=== PATIENT | male | born 1990 | race Caucasian/White ===

== ENCOUNTER → 2016-10-26 | Outpatient (CLI) | payer OTHER | LOC: M SLEEP 19:04 | PROVIDERS: ATTEND Nurse Practitioner Adult Health | DX: G47.30 Sleep apnea, unspecified (principal) ==

== ENCOUNTER 2016-11-06 07:00 | Emergency (ER) | payer OTHER ==
[~2016-11-06] VITALS: Ht 177.8 cm; Wt 81.6 kg
[2016-11-06] MEDS ORDERED: CELE50CA PO (07:10)
[2016-11-06] MEDS ORDERED: SUMA25TA3 PO (07:10)
[2016-11-06] MEDS ORDERED: IBUP800T23 PO (07:10)
[2016-11-06] MEDS ORDERED: BACL10TA2 PO (07:10)
[2016-11-06] MEDS ORDERED: CLINDAMYCIN 150 MG CAP PO ONE (07:30)
[2016-11-06] MEDS ORDERED: MAGIC MOUTHWASH SUSPENSION BTL SSP ONE (07:30)
[2016-11-06] MEDS ORDERED: CLEO300C2 PO (07:34)
[2016-11-06] MEDS ORDERED: ULTR50TA PO (07:34)
[2016-11-06 08:06] VITALS: BP 154/56
== END 2016-11-06 08:08 | disposition home or self-care (01) ==
LOC: M ED 07:48
DX: K12.2 Cellulitis and abscess of mouth (principal); R51 Headache; M54.9 Dorsalgia, unspecified; Z98.890 Other specified postprocedural states; Z87.891 Personal history of nicotine dependence; Z79.899 Other long term (current) drug therapy